=== PATIENT | male | born 1970 | race Caucasian/White ===

== ENCOUNTER 2022-03-01 16:48 | Emergency (ER) | payer SELFPAY ==
[~2022-03-01] VITALS: Ht 177.8 cm; Wt 69.4 kg
[2022-03-01] MEDS ORDERED: LISI40TA13 PO (17:28)
--- NOTE | 2022-03-01 17:28 | NUR ---
SEE AND EXAMINED BY DR MOORE
[2022-03-01] MEDS ORDERED: LISINOPRIL (20MG) 20 MG TABLET ONE (17:34)
[2022-03-01 17:36] VITALS: BP 176/103
[2022-03-01] MEDS: LISINOPRIL (20MG) 20 MG TABLET PO SCH (17:36)
--- NOTE | 2022-03-01 17:39 | NUR ---
Patient discharged to home in stable condition. Written and verbal after care instructions given. Patient verbalizes understanding of instruction.
== END 2022-03-01 17:40 ==
LOC: ER 16:54
DX: I10 Essential (primary) hypertension (principal); Z76.0 Encounter for issue of repeat prescription; Z79.899 Other long term (current) drug therapy